=== PATIENT | female | born 1955 | race Caucasian/White ===

== ENCOUNTER 2019-11-30 10:27 | Outpatient (CLI) | payer OTHER, SELFPAY ==
--- NOTE | ~2019-11-30 | MM_ITS ---
EXAMINATION: MM screening [facility] w kenny HISTORY: Screening mammogram TECHNIQUE: Craniocaudal and mediolateral oblique 3-D tomosynthesis images were obtained and synthetic 2-D images were generated. CAD analysis was submitted and interpreted. COMPARISON: 10/07/2018, 10/06/2017 bilateral digital screening mammogram examinations BREAST PARENCHYMAL COMPOSITION: There are scattered areas of fibroglandular density. FINDINGS: Occasional bilateral benign calcifications. Benign-appearing intramammary lymph nodes on th e right. There is no evidence of suspicious mass, calcification, or architectural distortion to sugge st malignancy in either breast. There has been no suspicious interval change. IMPRESSION: 1. No mammographic evidence of malignancy. 2. Recommend routine screening mammography in one year. BI-RADS Category 2: Benign finding(s). Reviewed, dictated and finalized at location A.
== END 2019-11-30 10:28 | disposition home or self-care (01) ==
LOC: CHSIMG 10:31
PROVIDERS: PCP Physician Assistant; Visit Provider Physician Assistant
DX: Z12.31 Encounter for screening mammogram for malignant neoplasm of breast (principal)
CPT/HCPCS: 77063; 77067

== ENCOUNTER 2020-12-07 07:57 | Outpatient (CLI) | payer MEDICARE, SELFPAY ==
--- NOTE | ~2020-12-07 | MM_ITS ---
EXAMINATION: MM screening [facility] BI w kenny HISTORY: Screening mammogram TECHNIQUE: Craniocaudal and mediolateral oblique 3-D tomosynthesis images were obtained and synthetic 2-D images were generated. CAD analysis was submitted and interpreted. COMPARISON: 11/30/2019, 10/07/2018, 10/02/2017 bilateral digital screening mammogram examinations BREAST PARENCHYMAL COMPOSITION: There are scattered areas of fibroglandular density. FINDINGS: Stable bilateral intramammary circumscribed small benign-appearing lymph nodes. Occasional bilateral benign calcifications. There is no evidence of suspicious mass, calcification, or etl data architect ural distortion to suggest malignancy in either breast. There has been no suspicious interval change. IMPRESSION: 1. No mammographic evidence of malignancy. 2. Recommend routine screening mammography in one year. BI-RADS Category 2: Benign finding(s). Reviewed, dictated and finalized at location A.
== END 2020-12-07 07:58 | disposition home or self-care (01) ==
LOC: CHSIMG 08:00
PROVIDERS: PCP Physician Assistant; Visit Provider Physician Assistant
DX: Z12.31 Encounter for screening mammogram for malignant neoplasm of breast (principal)
CPT/HCPCS: 77063; 77067

== ENCOUNTER 2021-09-06 13:59 | Outpatient (RCR) | payer MEDICARE, SELFPAY ==
--- NOTE | 2021-09-13 08:41 | PTOPEVAL ---
Thank you for referring Rhonda Giraldo to [facility].? The patient is scheduled to be seen for therapy? ____x/week for ___ weeks. Please review, sign, date and return this plan of care SELINA. I agree with and certify that the following plan of care is medically necessary. Referring Physician Date Admitting Provider: Attending Provider: Kayleen Lester, PA Referring Provider: *PT Outpatient Evaluation Start: 09/06/21 14:07 Freq: Status: Active Protocol: Document 09/06/21 14:00 [facility] (Rec: 09/06/21 15:33 [facility] [id number]) Therapy Assessment Status Assessment Status Assessment Status Evaluation Evaluation Information Problem Diagnosis L Knee Pain Onset 08/26/21 Additional Evaluation Detail LEFS = 38% Functionally Declined Subjective Information Pt reports that she feels as Query Text:As Reported By Patient/ though she cannot walk as Family though she used to. She states that she has trouble standing up straight at the trunk and straightening her knee. She was prescribed medication for her L knee pain about two weeks ago. now, she is able to walk better, but feels as though she is limp. After a week of taking the medication, she began to have a decrease in her pain. Stairs also are troublesome as she is fearful her leg will give out on her and she relies heavily on her railing. Pt also states that she has had XRAYs taken of her knee which, according to her understanding, have decreased space within the knee. Prior Level of Function Comments Additional Prior Level of Function Prior to the exacerbation of Comments her knee pain, she was able to walk without any limitation. Pain Assessment Timing of Pain Assessment Timing of Pain Assessment Pre-Treatment Pain Scale Pain Scale Used Numeric (1 - 10) Self Report Pain Assessment Left Knee(s) Reported Pain Level 1 Lowest Pain Intensity 1 Greatest Pain Intensity 6 Pain Score Pain Score 1: Self Report Interventions Used Interventions Used By Clinicians Education,Exercise Lower Extremity Range of Motion Hip Range of Motion Right Hip Medial Rotation - Activ
--- NOTE | 2021-11-11 16:42 | PCPTNOTE ---
Mrs. Clark attended a total of 2 treatment sessions from 09/06/21 to 09/09/21. She has failed to return to the clinic and will be discharged from our care. Refer to pt. last daily noted for discharge status.
== END 2021-09-09 14:29 | disposition home or self-care (01) ==
LOC: CHSPT 13:59
PROVIDERS: Visit Provider Physician Assistant
DX: M25.562 Pain in left knee (principal); G89.29 Other chronic pain
CPT/HCPCS: 97110; 97161

== ENCOUNTER 2022-03-25 19:28 | Emergency (ER) | payer OTHER, MEDICARE, SELFPAY ==
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
[2022-03-25 19:43] VITALS: BP 154/72; PULSE 69; RESP 16; TEMP 36.6; O2SAT 100
[2022-03-25 20:38] VITALS: BP 160/62; PULSE 66; RESP 20; O2SAT 99
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
[2022-03-25 20:58] LABS: Basophils Percent Auto 0.3 % (0.2-1.2); Eosinophils Absolute Auto 0.1 K/mm3 (0-0.3); Eosinophils Percent Auto 0.9 % (0-4.4); Hemoglobin 14.7 g/dL (12.0-15.0); Immature Granulocyte Absolute 0.02 K/mm3 (0.00-0.031); Immature Granulocyte Percent A 0.3 % (0-0.5); Lymphocytes Percent Auto 27.9 % (18.3-44.2); Mean Corpuscular HGB Conc 32.7 g/dl (32-36); Mean Corpuscular Hemoglobin 30.1 pg (26-34); Mean Corpuscular Volume 92.2 fl (80-100); Mean Platelet Volume 9.4 fl (7.4-10.4); Monocytes Absolute Auto 0.5 K/mm3 (0.1-0.6); Monocytes Percent Auto 7.4 % (2.6-8.5); Neutrophils Absolute Auto 4.1 K/mm3 (1.3-6.7); Neutrophils Percent Auto 63.2 % (45.5-73.1); Platelet Count Result 242 k/mm3 (150-375); Red Blood Count 4.88 M/mm3 (4.2-5.4); White Blood Count 6.5 K/mm3 (4.5-10.0)
[2022-03-25 21:08] LABS: Alanine Aminotransferase 20 U/L (6-35); Albumin Level 4.5 g/dL (3.5-5.1); Alkaline Phosphatase 81 U/L (38-126); Anion Gap 7 mmol/L (8-16); Aspartate Amino Transferase 22 U/L (14-36); Bilirubin,Total 0.4 mg/dL (0.2-1.3); Blood Urea Nitrogen 17 mg/dL (7-17); Calcium 9.3 mg/dL (8.4-10.2); Carbon Dioxide 27 mmol/L (22-30); Chloride 104 mmol/L (98-107); Estimated CRCL calculation 81 ml/min; Estimated Glomerular Filt Rate > 60; Glucose 99 mg/dL (65-110); Potassium 4.3 mmol/L (3.4-5.0); Sodium 138 mmol/L (137-145)
[2022-03-25 21:09] LABS: INR 0.9; Prothrombin Time 12.2 Seconds (11.1-14.7)
[2022-03-25 21:10] LABS: Partial Thromboplastin Time 25.4 SECONDS (22.3-36.8)
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
[2022-03-25 23:28] VITALS: BP 128/68; PULSE 77; RESP 20; O2SAT 98
== END 2022-03-25 23:29 | disposition home or self-care (01) ==
PROVIDERS: Emergency Provider Physician Assistant; PCP Physician Assistant
DX: T14.8XXA Other injury of unspecified body region, initial encounter (principal); V89.2XXA Person injured in unspecified motor-vehicle accident, traffic, initial encounter
CPT/HCPCS: 36415; 70450; 71260; 72125; 72129; 72132; 73564; 74177; 80053; 85025; 85610; 85730; 99284; Q9967

== ENCOUNTER 2022-12-10 13:34 | Emergency (ER) | payer MEDICARE, SELFPAY ==
[2022-12-10 13:48] VITALS: BP 127/75; PULSE 94; RESP 16; TEMP 36.8; O2SAT 99
--- NOTE | 2022-12-10 14:56 | ED.URI ---
HPI - URI/Sore Throat General Chief Complaint: Upper Respiratory Infection Stated Complaint: SORE THROAT Time Seen by Provider: 12/10/22 14:44 Source: patient and RN notes reviewed Mode of arrival: ambulatory Limitations: no limitations History of Present Illness HPI Narrative: Patient presents today with a 4 day history of sore throat, postnasal drip, productive cough, rhinorrhea. Denies fever or shortness of breath. Currently rates her sore throat 11/23 and has been taking Nadine D without relief. Grand children with strep throat. Related Data Home Medications Medication Instructions Recorded Confirmed escitalopram oxalate 20 mg tablet 20 mg PO DAILY 12/10/22 12/10/22 Allergies Allergy/AdvReac Type Severity Reaction Status Date / Time No Known Allergies Allergy Verified 03/25/22 19:43 Review of Systems Review of Systems: CONSTITUTIONAL: Denies body aches, fever, chills, or sweats. EYES: Denies visual changes, redness, or discharge. ENT: Denies congestion, or otalgia.+ rhinorrhea, postnasal drip, sore throat CARDIOVASCULAR: Denies chest pain, palpitations, or edema. RESPIRATORY: Denies dyspnea.+ cough GASTROINTESTINAL: Denies abdominal pain, nausea, vomiting, or diarrhea. GENITOURINARY: Denies dysuria or hematuria. SKIN: Denies rash, itching, or wounds. MUSCULOSKELETAL: Denies back pain, joint pain, or myalgia. NEUROLOGIC: Denies headache, numbness, tingling, or weakness. PSYCH: Denies depression or anxiety. PMFSH Past Medical History Medical History History of depression Surgical History Surgical History History of cholecystectomy Social History Social History Smoking status: Never smoker Comments At time of signature, I have reviewed and agree with nursing past medical, surgical, social and family history unless otherwise noted. Please see nursing chart for further information. There is no relevant family history pertinent to the presenting complaint Exam Narrative: GENERAL: Well-appearing, well-nourished, and in no acute distress. HEAD: Normocephalic, atraumatic. EYES: EOMI. No redness or drainage. Conjunctivae normal. ENT: Mucous membranes pink and moist. Nares clear. No rhinorrhea. TMs normal bilaterally. Throat normal. Uvula midline. NECK: Normal AROM. Supple. No lymphadenopathy. CHEST: No respiratory distress. Clear to auscultation. HEART: Regular rate and rhythm. No murmur appreciated. Normal peripheral pulses. EXTREMITIES: Normal range of motion. No edema. SKIN: Warm, dry, no rash. Capillary refill normal. Normal skin turgor. NEURO: No focal deficits. Alert and oriented x3. Gait steady. PSYCH: Normal affect. No signs of depression or anxiety. Course Course Level of Care: Express Care Visit Vital Signs Vital signs: Vital Signs Temperature 98.3 F 12/10/22 13:48 Pulse Rate 94 12/10/22 13:48 Respiratory Rate 16 12/10/22 13:48 Blood Pressure 127/75 12/10/22 13:48 Pulse Oximetry 99 12/10/22 13:48 Temperature 98.3 F 12/10/22 13:48 Pulse Rate 94 12/10/22 13:48 Respiratory Rate 16 12/10/22 13:48 Blood Pressure 127/75 12/10/22 13:48 Pulse Oximetry 99 12/10/22 13:48 Reviewed. Pt has been instructed to follow up with her PCP regarding her elevated blood pressure today. MDM - URI/Sore Throat MDM Narrative Medical decision making narrative: Rapid strep negative. Culture pending. Symptoms likely viral in etiology. Suggestions made for [id number] treatment. Anticipatory guidance given. Differential Diagnosis Differential diagnosis: Likely upper respiratory infection, sinusitis, viral infection, bronchitis, pharyngitis and other (Strep throat) Lab Data Attestation: I reviewed the patient's lab results. Labs: Strep Screen
== END 2022-12-10 15:02 | disposition home or self-care (01) ==
PROVIDERS: Emergency Provider Nurse Practitioner; PCP Physician Assistant
DX: J06.9 Acute upper respiratory infection, unspecified (principal)
CPT/HCPCS: 87081; 87880; 99213; G0463

== ENCOUNTER 2023-03-27 08:27 | Outpatient (CLI) | payer MEDICARE, SELFPAY ==
--- NOTE | ~2023-03-27 | MM_ITS ---
EXAMINATION: MM screening [facility] BI w kenny HISTORY: Screening mammogram TECHNIQUE: Craniocaudal and mediolateral oblique 3-D tomosynthesis images were obtained and synthetic 2-D images were generated. CAD analysis was submitted and interpreted. COMPARISON: 12/07/2020, 11/30/2019, 10/07/2018 BREAST PARENCHYMAL COMPOSITION: There are scattered areas of fibroglandular density. FINDINGS: No suspicious mass, calcification, or architectural distortion are identified in either jose f ast to suggest malignancy. There has been no suspicious interval change. IMPRESSION: 1. No mammographic evidence of malignancy. 2. Recommend routine screening mammography in one year. BI-RADS Category 1: Negative Reviewed, dictated and finalized at location A. DER OPERATOR TOOL
== END 2023-03-27 08:28 | disposition home or self-care (01) ==
LOC: CHSIMG 08:29
DX: Z12.31 Encounter for screening mammogram for malignant neoplasm of breast (principal)
CPT/HCPCS: 77063; 77067

== ENCOUNTER 2024-05-13 07:58 | Outpatient (CLI) | payer MEDICARE, SELFPAY | END 2024-05-13 07:59 | disposition home or self-care (01) | LOC: CHSIMG 08:00 | PROVIDERS: PCP Physician Assistant; Visit Provider Physician Assistant | DX: Z12.31 Encounter for screening mammogram for malignant neoplasm of breast (principal) | CPT/HCPCS: 77063; 77067 ==